=== PATIENT | male | born 1990 ===

== ENCOUNTER 2018-02-16 19:39 | Emergency (ER) | payer OTHER ==
[2018-02-16 19:47] VITALS: RESP 18; O2SAT 99
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
[2018-02-16 20:29] LABS: BASO % 0.2 % (0.0-2.0); EOS # 0.1 K/uL (0.0-0.7); EOS % 0.9 % (0.0-4.0); HEMOGLOBIN 14.7 g/dL (12.0-18.0); LYMPH # 2.5 K/uL (1.0-4.3); LYMPH % 32.3 % (20.0-40.0); MEAN CORPUSCULAR HEMOGLOBIN 31.2 pg (27.0-31.0); MEAN CORPUSCULAR HGB CONC 35.1 g/dL (33.0-37.0); MEAN PLATELET VOLUME 7.6 fL (7.2-11.7); MONO # 0.6 K/uL (0.0-0.8); MONO % 7.2 % (0.0-10.0); NEUT # 4.6 K/uL (1.8-7.0); NEUT % 59.4 % (50.0-75.0); NRBC % 0.1 % (0.0-2.0); RBC 4.71 Mil/uL (4.40-5.90); RED CELL DISTRIBUTION WIDTH 12.5 % (11.5-14.5); WHITE BLOOD COUNT 7.7 K/uL (4.8-10.8)
[2018-02-16 20:32] LABS: URINE BILIRUBIN NEGATIVE (NEGATIVE); URINE BLOOD NEGATIVE (NEGATIVE); URINE CLARITY Clear (Clear); URINE COLOR Straw (YELLOW); URINE GLUCOSE (UA) NORMAL (Normal); URINE LEUKOCYTE ESTERASE NEG Leu/uL (Negative); URINE PROTEIN NEGATIVE (NEGATIVE); URINE UROBILINOGEN NORMAL mg/dL (0.2-1.0)
[2018-02-16 20:41] LABS: ALB/GLOB RATIO 1.4 (1.0-2.1); ALBUMIN 4.6 g/dL (3.5-5.0); ALT/SGPT 37 U/L (21-72); AMYLASE 85 U/L (30-110); AST/SGOT 40 U/L (17-59); BLOOD UREA NITROGEN 13 mg/dL (9-20); CALCIUM 9.7 mg/dl (8.6-10.4); GFR NON-AFRICAN AMERICAN > 60
[2018-02-16 22:16] VITALS: BP 118/73; PULSE 77; TEMP 98.1
[2018-02-18 11:26] LABS: HEPATITIS B SURFACE AG Negative (NEGATIVE)
[2018-02-18 11:42] LABS: HEPATITIS C ANTIBODY NEGATIVE (NEGATIVE)
[2018-02-18 11:55] LABS: HEPATITIS A IGM NEGATIVE (NEGATIVE)
[2018-02-18 11:56] LABS: HEPATITIS B CORE AB NEGATIVE (NEGATIVE)
== END 2018-02-16 21:35 | disposition home or self-care (01) ==
LOC: C.ER 19:39 → SUPCPDRO 19:39 → C.ER 21:35
DX: Z77.21 Contact with and (suspected) exposure to potentially hazardous body fluids (principal)